=== PATIENT | female | born 1985 | race Caucasian/White ===

== ENCOUNTER 2016-10-20 11:34 | Inpatient (IN) | payer MEDICAID, OTHER ==
[~2016-10-20] VITALS: Ht 162.6 cm; Wt 54.4 kg
--- NOTE | 2016-10-20 15:14 | NUR ---
Nursing Note Admit time Pt brought by ambulance from [facility] at 1427. Pt placed on a 72 hour hold today at 1045 am as danger to self & to property. Pt taken to room upon arrival. Requested that pt change from hospital gown & pants to scrubs. Pt shouted, "I need a bra."
[2016-10-20] MEDS ORDERED: OLAN5TAB PO (16:51)
[2016-10-20] MEDS ORDERED: QUET100T PO (16:52)
[2016-10-20] MEDS ORDERED: DEP500A PO (16:54)
[2016-10-20] MEDS ORDERED: Magnesium Hydroxide 10 mL Oral Concentration PO PRN (18:25)
[2016-10-20] MEDS ORDERED: Alum-Mag Hydrox-Simeth 30 mL Suspension PO PRN (18:25)
--- NOTE | 2016-10-20 18:38 | NUR ---
Observations 0900 to 2130 Pt affect and mood was flat, isolative, sullen and withdrawn. Pt was in her room and isolative most of the shift. Pt was minimally social when approached. Pt attended dinner in D.R. and ate approximately 75% of her meals. Pt was offered snack but she declined. Pt maintained behavior throughout the shift. Pt declined to participate in unit activities. Pt was observed every 15 minutes throughout the shift as ordered.
--- NOTE | 2016-10-20 21:13 | NUR ---
[facility] 10:42 pt unable to sign paperwork and unable to give good responses to questions, appears very sleepy, information obtained from paperwork from [facility] ER, took night time medications and said hoarsely " bless you" appeared asleep most of shift, 15 min checks done as ordered
--- NOTE | 2016-10-21 05:53 | NUR ---
Nursing Note 11pm to 7am Handle Maker Pt asleep at start of shift and remained asleep without interruption. Pt received Ambien 5mg 2030. Monitored pt. with q15 minute face checks for safety location and accountability
[2016-10-21] MEDS: LORazepam 2 mg Tablet PO PRN ×2 (07:42→16:19)
--- NOTE | 2016-10-21 13:55 | NUR ---
Recovery Advocate./ c.m. S.:"I'm really tired. I run out of my meds and I get mad very fast." O.: met with pt. and MD together for initial interview. Pt. is SURYA 72 hrs hold as DTS. She had psych. hospitalizations in the past. Her last hospitalization was in 2015 at [facility]. She is not connected with mental health services at this time. She denied SI/HI, denied AH/VH, denied paranoid/delusional thoughts. She rated depression at 7/10 and anxiety at 6/10. She didn't want to talk much because she felt "very tired". A.: pt. is isolative, easily agitated, anxious, looks disheveled. P.: monitor behavior, monitor for safety, engage pt. in the program activities; follow care plan.
[2016-10-21] MEDS ORDERED: Benzocaine-Menthol Lozenge 2/Pkg PO PRN (16:05)
--- NOTE | 2016-10-21 18:16 | NUR ---
Nursing; Day shift: 699- 190 S: Radha has mostly been in her room. She comes out for meals and sleeps between. Her left hand, ring finger, has a ring that is very tight. Tissue around it is constricted by ring. Unsuccessful attempt was made to cut off the ring. Pt was offered and accepted ativan about 0745 and again at 1619 for anxiety at 10/10. At 1000, pt rated anxiety as 5/10. Somewhat flat facial expression. Pt admits to "mostly use marijuana.Well some meth. But I don't like meth." A: Sleep deprived. Catching up on rest. P: Continue ot encourage her to be out in milieu. Addendum: 10/21/16 at 1832 by ABHILASH BAKER RN Amended: Links added.
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
--- NOTE | 2016-10-22 05:49 | NUR ---
Nursing notes; [facility] shift lead[facility]sleep Patient appears to be sleeping on safety checks during the night. No complaints voiced.
--- NOTE | 2016-10-22 11:24 | NUR ---
Nursing Day Shift- S/O- Pt. had slept well last PM per report. She awoke and went to the DR for breakfast, and eat well. Pt. was pleasant when her medications were offered. She took 100%. She has been resting in her bed since that time at all [address] was delayed. She remains on a 72 hour hold. A- Increased cooperation compared to behavior reported by staff yesterday. P- Monitor further when awake. Cont. BHTP.
[2016-10-22 12:18] VITALS: BP 113/87; PULSE 125
[2016-10-22] MEDS: LORazepam 2 mg Tablet PO PRN (18:17)
--- NOTE | 2016-10-22 18:19 | NUR ---
Nurses Note PRN Patient requested and received Ativan 2mg for increasing anxiety.Patient presented restless,tremulous with poor eye contact .Will assess response.
--- NOTE | 2016-10-22 18:44 | NUR ---
[facility] Day Shift Pt maintained behavioral control throughout the shift. Pt affect appears mostly flat. Pt spends most of the shift resting in her room. Pt is appropriate with staff and peers when active on the unit, but is not social. Pt briefly observed crying loudly/wailing in her room (pt did not articulate why she was doing this). Pt did not attend group activities throughout the shift. Pt attended all meals and ate approx 100% of all meals.
--- NOTE | 2016-10-22 21:42 | PCM.PNPSY ---
Subjective Date of Service October 22, 2016 Subjective "I'm just tired...stable, but tired." Patient only minimally cooperative, turns away from the team and prepares to sleep. She denies side effects and agrees with plan for eventual quetiapine monotherapy. Sleep: 8+ hours Appetite: "okay" Suicidal and homicidal ideation: denies Auditory hallucinations/Visual hallucinations: denies Other Psychotic Symptoms: irritable, dismissive Anxiety/Depression: "just the normal downs" Current Medications Current Medications Olanzapine 5 mg HS PO Last administered on 10/22/16 20:23; Admin Dose 5 MG; Start 10/21/16 at 21:00 Quetiapine Fumarate 200 mg BID PO Last administered on 10/22/16 20:23; Admin Dose 200 MG; Start 10/21/16 at 20:30 Trazodone HCl 50 mg HS PRN PO Last administered on 10/21/16 20:20; Admin Dose 50 MG; Start 10/21/16 at 16:20 Mental Status Exam Appearance: Unkept, Disheveled Attitude: Cooperative (marginally), Guarded Behavior: Other (Less agitated, partially cooperative, terminates interview early.) Affect: Restricted Mood: Irritable Thought Process/Associations: Goal Directed Speech Production: Paucity Speech Rate: Lags/Latency Speech Articulation: Other (dysarthria) Thought Content: Other (will not answer questions regarding same.) Danger to Self/Suicidal Ideati: None Danger to Others: None Hallucinations: Auditory (Denies), Visual (Denies) Consciousness: Somnolent Orientation: Person, Place, Situation Memory: Untestable Estimate Intellectual Function: Average Basis for IQ estimate: Word use/vocabulary, Educational history, Employment history Attention/Concentration & Cogn: Impaired Insight: Limited Judgement: Poor Mental Health Plan Patient is a 31 y.o female admitted on a 72hr SURYA with reported prior history of bipolar disorder and polysubstance use with recent marijuana and methamphetamine use. She also may have a history of eating disorder. She is still not very forthcoming with details about her current status but is less irritable and appears less paranoid. [place] AXIS I: Bipolar disorder, by history vs methamphetamine induced mood/ psychotic disorder Methamphetamine use disorder Marijuana use disorder Rule out eating disorder (binge/purge) AXIS II: Defer AXIS III: None acute AXIS IV: Severe with substance use, unemployment, mental illness, poor coping skills AXIS V: GAF 30 Medications Quetiapine 200mg po bid Olanzapine 5mg at bedtime Trazodone 50-100mg nightly prn insomnia Lorazepam 2mg po q4hr prn anx/agit nte 8mg/24hrs Treatments 1. The patient is admitted to the inpatient unit and will be provided a safe and secure environment. 2. The patient is denying current active suicidality and is not in need of a one-to-one at this time. Patient agrees to notify staff if has return of suicidality. 3. The patient is encouraged to participate with group and milieu activities. 4. The patient will be seen by the treatment team on a daily basis to assess symptoms, side effects and response to treatment. 5. Quetiapine 200 mg twice daily 6. Outpatient records have been requested. 7. If patient begins to clear, may be able to discontinue olanzapine. 8. Anticipated length of stay is 5-7 days. Josue Amato MD October 22, 2016 21:42
[2016-10-23] MEDS: LORazepam 2 mg Tablet PO PRN (15:42)
--- NOTE | 2016-10-23 16:48 | NUR ---
Crematorium Operator/Counselor: S: "I'm getting over walking pneumonia." O: Patient slept 8 hours last night as per staff. She denies S/I and H/I. She denies auditory and visual hallucinations. Depression is 4/10 and anxiety is "not really." When asked her mood, patient stated, "I'm happier." A: Patient is cooperative, improving, fair insight, fair judgment. P: Follow the care plan, coordinate with out-patient providers.
--- NOTE | 2016-10-23 18:13 | NUR ---
Nursing Dayshift: S: "I really wish I could have something more for the anxiety." O: Patient c/o increased anxiety and received Ativan 2 mg PO at 1542 without much relief per patient. Rates depression at an 8/10. Denies harmful thoughts and hallucinations. Has been in her room much of the shift. Out for meals and snacks. Out more late afternoon through present. Appears uncomfortable. Offered and accepted Motrin 600 mg at 1654 with minimal relief per patient. Has made a few phone calls this evening. A: Isolative. More active later in the shift. Restless. P: CPOC. Monitor mood and behavior.
[2016-10-23 18:25] VITALS: BP 129/86; PULSE 125; RESP 18
--- NOTE | 2016-10-23 20:11 | PCM.PNPSY ---
Subjective Date of Service October 23, 2016 Subjective The patient reports that she is "tired...I'm getting over walking pneumonia." She reports no problems with breathing, fever, chills, or cough. She reports that she is feeling "happier" and is feeling ready to return home. She reported that she was going to talk to her boyfriend shortly. She states she feels better on the higher dose quetiapine and denies any side effects. Sleep: 8 hours "fine" Appetite: "good" Suicidal and homicidal ideation: denies Auditory hallucinations: denies Visual hallucinations: denies Other Psychotic Symptoms: N/A Anxiety: "not really" 09/29 Depression: "naturally fight depression." Current Medications Current Medications Olanzapine 5 mg HS PO Last administered on 10/22/16 20:23; Admin Dose 5 MG; Start 10/21/16 at 21:00 Quetiapine Fumarate 200 mg BID PO Last administered on 10/23/16 09:25; Admin Dose 200 MG; Start 10/21/16 at 20:30 Mental Status Exam Vital Signs Vital Signs Date Time Temp Pulse Resp B/P Pulse Ox O2 Delivery O2 Flow Rate FiO2 10/23/16 18:25 36.2 125 18 129/86 Appearance: Unkept, Disheveled Attitude: Pleasant, Cooperative Behavior: No unusual behavior Affect: Restricted Mood: Dysthymic Thought Process/Associations: Logical/Sequential, Goal Directed Speech Production: Paucity Speech Rate: Normal Speech Articulation: Other (mild dysarthria) Thought Content: Appropriate Danger to Self/Suicidal Ideati: None Danger to Others: None Hallucinations: Auditory (Denies), Visual (Denies) Consciousness: Somnolent Orientation: Person, Place, Date, Situation Memory: Grossly Intact Estimate Intellectual Function: Average Basis for IQ estimate: Word use/vocabulary, Educational history, Employment history Attention/Concentration & Cogn: Impaired Insight: Limited Judgement: Limited Mental Health Plan Patient is a 31 y.o female admitted on a 72hr SURYA with reported prior history of bipolar disorder and polysubstance use with recent marijuana and methamphetamine use. She also may have a history of eating disorder. The patient is still tired, but pleasant and cooperative and is denying acute symptoms or side effects. Depending on interaction with family/boyfriend, may be appropriate for release soon. [place] AXIS I: Bipolar disorder, by history vs methamphetamine induced mood/ psychotic disorder Methamphetamine use disorder Marijuana use disorder Rule out eating disorder (binge/purge) AXIS II: Defer AXIS III: None acute AXIS IV: Severe with substance use, unemployment, mental illness, poor coping skills AXIS V: GAF 35 Medications Quetiapine 200mg po bid Olanzapine 5mg at bedtime Trazodone 50-100mg nightly prn insomnia Lorazepam 2mg po q4hr prn anx/agit nte 8mg/24hrs Treatments 1. The patient is admitted to the inpatient unit and will be provided a safe and secure environment. 2. The patient is denying current active suicidality and is not in need of a one-to-one at this time. Patient agrees to notify staff if has return of suicidality. 3. The patient is encouraged to participate with group and milieu activities. 4. The patient will be seen by the treatment team on a daily basis to assess symptoms, side effects and response to treatment. 5. Quetiapine 200 mg twice daily 6. Outpatient records have been requested. 7. If patient begins to clear, may be able to discontinue olanzapine. 8. Anticipated length of stay is 2-3 days. Josue Amato MD October 23, 2016 20:11
--- NOTE | 2016-10-23 20:21 | NUR ---
Observations 0900 to 2130 Pt affect and mood was flat, isolative, sullen and withdrawn. Pt was in her room and isolative most of the shift. Pt was minimally social when approached. Pt attended dinner in D.R. and ate approximately 75% of her meals. Pt was offered snack but she declined. Pt maintained behavior throughout the shift. Pt refused to attend community meeting. Pt refused to attend group and unit activities. Pt declined to participate in unit activities. Pt was observed every 15 minutes throughout the shift as ordered.
--- NOTE | 2016-10-24 04:30 | NUR ---
Nursing Noc Pt scheduled for court tomorrow. Pt agreed to continue medications throughout prior to court. Pt out to DR for evening snack then isolative back to room. Pt did not participate in evening wrap up. Noted to be first asleep at 2215 and remained asleep thoughout the shift. Continuing to monitor mood behavior, emotional state and medication effectiveness by Q15 minute safety checks. CP
[2016-10-24 09:11] VITALS: BP 128/87; PULSE 92; RESP 18
--- NOTE | 2016-10-24 11:20 | NUR ---
Nursing Day Shift- S- Yea..I* feel good. Better. Are you asking about my ride? I tried my boyfriend but the phone isn't taking messages. If he doesn't call me back I'll take a cab [facility]." O- Pt. had slept well per report. She came out of her room for breakfast and eat well, then returned. She took her medications without comment, then rested in her bed until snack time. Pt. denied thoughts of self harm, auditory or visual hallucinations. She expressed feeling ready for discharge. A- No hypomania or inappropriate behavior observed. Appears to be catching up on sleep after reported methamphetamine use.
[2016-10-24] MEDS: LORazepam 2 mg Tablet PO PRN (15:04)
--- NOTE | 2016-10-24 16:37 | PCM.DIMED ---
Discharge Instructions Date of Service October 24, 2016 Dates of Hospitalization October 20, 2016 at 14:27 Discharge Diagnosis Discharge Diagnosis AXIS I: Bipolar disorder, by history vs methamphetamine induced mood/ psychotic disorder Methamphetamine use disorder Marijuana use disorder Rule out eating disorder (binge/purge) AXIS II: Defer AXIS III: None acute AXIS IV: Severe with substance use, unemployment, mental illness, poor coping skills AXIS V: GAF 45 Diet No restrictions Activity No restrictions Patient Instructions Should you have any thoughts of harming yourself or others, please call the crisis line, your provider, 911, or go to the nearest Emergency Department. Do not change or discontinue your medications without discussing with your provider. You have been given a prescription for 30 days supply of your medication Follow-up plan Primary Care Provider KATHLEEN Elizabeth on 10/27/16 at 2:15 [facility] [address] [place] [id number] Mental Health Intake on 10/28/16 at 8:30am [facility] [address] [address] Josue Amato MD October 24, 2016 13:53
[2016-10-24] MEDS ORDERED: DEP500A PO (16:43)
[2016-10-24] MEDS ORDERED: OLAN5TAB PO (16:43)
[2016-10-24] MEDS ORDERED: QUET200T58 PO (16:43)
[2016-10-24] MEDS ORDERED: TRAZ-115 PO (16:43)
--- NOTE | 2016-10-24 19:24 | NUR ---
Plant Operations Manager/Counselor: S/O: Patient slept 7.75 hours last night as per staff. She denies S/I and H/I. She denies auditory and visual hallucinations. Depression is 4/10 and anxiety is 0/10. Out-patient appointments: KATHLEEN Elizabeth, 10/27/16 at 2:15pm and [facility], 10/28/16 at 8:30am. A: Patient is cooperative, hopeful, fair insight, fair judgment. P: Follow the care plan, coordinate with out-patient providers.
--- NOTE | 2016-10-24 20:30 | NUR ---
Nursing DC note Patient discharged from unit at 2030. Pt cooperative with discharge, all questions answered and verbalized back correctly. Prescriptions faxed to [facility] in [place]. Pt denies harmful thoughts or hallucinations.
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
== END 2016-10-24 20:30 | disposition home or self-care (01) | DRG 897 ==
LOC: MHC 14:27
PROVIDERS: ADMIT Psychiatry & Neurology Psychiatry; ATTEND Psychiatry & Neurology Psychiatry
DX: F15.14 Other stimulant abuse with stimulant-induced mood disorder (principal); F31.9 Bipolar disorder, unspecified; F12.10 Cannabis abuse, uncomplicated; Z56.0 Unemployment, unspecified; Z91.5 Personal history of self-harm